=== PATIENT | male | born 1995 | race Hispanic/Latino ===

== ENCOUNTER 2017-06-16 20:12 | Emergency (ER) | payer SELFPAY | END 2017-06-16 22:28 | disposition left against medical advice (07) | LOC: ED 20:12 | DX: Z53.21 Procedure and treatment not carried out due to patient leaving prior to being seen by health care provider (principal) ==

== ENCOUNTER 2021-10-11 01:02 | Emergency (ER) | payer SELFPAY ==
--- NOTE | 2021-10-11 04:18 | XRay Report ---
. RIGHT KNEE 4 VIEW(S) INDICATION / CLINICAL INFORMATION: INJURY pain COMPARISON: None available. FINDINGS: BONES / JOINT(S): No acute fracture or subluxation. No significant arthritis. SOFT TISSUES: No significant abnormality. ADDITIONAL FINDINGS: None. IMPRESSION: 1. No acute findings. Signer Name: Navi Knig MD Signed: 10/11/2021 4:13 AM Workstation Name: [id number]
--- NOTE | 2021-10-11 08:59 | Emergency Department Report ---
ED Lower Extremity HPI - General Chief Complaint: Extremity Injury, Lower Stated Complaint: TWISTED RT KNEE/PAINFUL Time Seen by Provider: 10/11/21 08:54 Source: patient Mode of arrival: Ambulatory Limitations: No Limitations - History of Present Illness Initial Comments: This is a 25-year-old male who presents to the emergency room with right knee pain. Patient states he injured his knee yesterday while at work. Patient states he was turning away from a grill when he felt a pop and pain to the lateral side of right knee. Patient states he could barely put any weight on it. The paramedics came out and told patient he needs to follow-up in the emergency room. Patient states his sister apply Coban wrap prior to arrival. Patient states the rash helps a little but the pain is unbearable with weight. Patient denies radiating pain, swelling, bruising, numbness or tingling. MD Complaint: knee injury Injury: Knee: Right Type of Injury: unknown Place: work Severity scale (0 -10): 8 Worsens With: weight bearing Associated Symptoms: snap/pop sensation, able to partially bear weight. denies: swelling, numbness, tingling Treatments Prior to Arrival: bandage - Related Data Previous Rx's Medication Instructions Recorded Last Taken Type Ibuprofen [Motrin 800 MG tab] 800 mg PO Q8HR PRN #30 tablet 10/11/21 Unknown Rx Allergies Allergy/AdvReac Type Severity Reaction Status Date / Time Penicillins Allergy Unknown Verified 10/11/21 03:21 ED Review of Systems ROS: Stated complaint: TWISTED RT KNEE/PAINFUL Other details as noted in HPI Constitutional: denies: chills, fever Respiratory: denies: cough, shortness of breath, wheezing Cardiovascular: denies: chest pain, palpitations Musculoskeletal: arthralgia. denies: joint swelling Skin: denies: rash, lesions Neurological: denies: headache, weakness, paresthesias Psychiatric: denies: anxiety, depression ED Past Medical Hx - Medications Home Medications: Home Medications Medication Instructions Recorded Confirmed Last Taken Type Ibuprofen [Motrin 800 MG tab] 800 mg PO Q8HR PRN #30 tablet 10/11/21 Unknown Rx ED Physical Exam - General Limitations: No Limitations General appearance: alert, in no apparent distress - Head Head exam: Present: atraumatic, normocephalic - Respiratory Respiratory exam: Present: normal lung sounds bilaterally. Absent: respiratory distress - Cardiovascular Cardiovascular Exam: Present: regular rate, normal rhythm. Absent: systolic murmur, diastolic murmur, rubs, gallop - Expanded Lower Extremity Exam Right Hip exam: Present: normal inspection Upper Leg exam: Present: normal inspection Knee exam: Present: tenderness (along the lateral joint line), crepidus, full knee extension. Absent: swelling, ecchymosis, erythema, effusion Lower Leg exam: Present: normal inspection Ankle exam: Present: normal inspection Foot/Toe exam: Present: normal inspection Neuro vascular tendon exam: Present: no vascular compromise. Absent: abnormal cap refill, sensory deficit, abnormal 2-point discrimination, significant pain with passive ROM of distal joint Gait: Positive: observed and limited by pain - Neurological Exam Neurological exam: Present: alert, oriented X3, abnormal gait (limp gait) - Psychiatric Psychiatric exam: Present: normal affect, normal mood - Skin Skin exam: Present: warm, dry, intact, normal color. Absent: rash ED Course Vital Signs 10/11/21 02:28 Temperature 98.0 F Pulse Rate 77 Respiratory 18 Rate Blood Pressure 134/78 O2 Sat by Pulse 95 Oximetry ED Lower Extremity MDM - Radiology Data Radiology results: report reviewed - Medical Decision Making This is a 25-year-old male presents with right knee pain, suspicious for knee sprain. There is tenderness along the lateral joint line. Patient is able to flex and extend but somewhat limited by pain. There is low suspicion of tibial plateau fracture, septic arthritis, neurovascular compromise, or an unstable fracture. X-ray of right knee obtained with no acute findings. Devon wrap applied. NSAIDs prescribed. Patient given rice therapy instructions. Given strict return instructions. Patient discharged home stable. Critical care attestation.: If time is entered above; I have spent that time in minutes in the direct care o f this critically ill patient, excluding procedure time. ED Disposition Clinical Impression: Right knee pain Qualifiers: Chronicity: acute Qualified Code(s): M25.561 - Pain in right knee Strain of right knee Qualifiers: Encounter type: initial encounter Qualified Code(s): S86.911A - Strain of unspecified muscle(s) and tendon(s) at lower leg level, right leg, initial encounter Disposition: HOME / SELF CARE / HOMELESS Is pt being admited?: No Condition: Stable Instructions: Acute Knee Pain, Adult, Muscle Strain, Elastic Bandage and RICE Therapy Prescriptions: Ibuprofen [Motrin 800 MG tab] 800 mg PO Q8HR PRN #30 tablet PRN Reason: Pain , Severe (7-10) Referrals: ANDREA WRAY MD [Staff Physician] - 3-5 Days [facility] [Provider Group] - 3-5 Days Forms: Work/School Release Form(ED) Time of Disposition: 09:12
[2021-10-11 09:37] VITALS: BP 118/63
== END 2021-10-11 09:37 | disposition home or self-care (01) ==
LOC: ED 01:02
DX: S86.911A Strain of unspecified muscle(s) and tendon(s) at lower leg level, right leg, initial encounter (principal); M25.561 Pain in right knee; X50.1XXA Overexertion from prolonged static or awkward postures, initial encounter; Y93.89 Activity, other specified; Y92.89 Other specified places as the place of occurrence of the external cause; Y99.8 Other external cause status
CPT/HCPCS: 99283